=== PATIENT | female | born 1945 | race Asian ===

== ENCOUNTER → 2018-12-05 | Outpatient (CLI) | payer MEDICARE ==
[~2018-12-05] MED LIST: AMLO10TA8 PO; METF500T17 PO; OMEP-110 PO; ROSU5TAB PO
== END | disposition home or self-care (01) ==
LOC: CFH 12:22
PROVIDERS: ATTEND Internal Medicine
DX: Z12.39 Encounter for other screening for malignant neoplasm of breast (principal); N64.4 Mastodynia; N95.8 Other specified menopausal and perimenopausal disorders
CPT/HCPCS: 76641; 77066; 77080; G0279